=== PATIENT | female | born 1985 | race African-American/Black ===

== ENCOUNTER 2016-11-20 08:03 | Emergency (ER) | payer MEDICAID ==
[~2016-11-20] VITALS: Ht 165.1 cm; Wt 57.0 kg
[2016-11-20 09:29] LABS: EOSINOPHILS % 4.5 % (0.0-5.0); HEMATOCRIT. 34.4 % (36.0-48.0); HEMOGLOBIN. 11.3 g/dL (12.0-16.0); LYMPHOCYTES % 38.7 % (20.0-50.0); MEAN CORPUSCULAR HEMOGLOBIN 26.7 pg (28.0-32.0); MEAN CORPUSCULAR VOLUME 81.3 fL (81.0-99.0); MEAN PLATELET VOLUME 7.1 fl (7.4-10.4); MONOCYTES % 5.3 % (2.0-8.0); NEUTROPHILS % 50.5 % (40.0-76.0); PLATELET 262 x1000/uL (130-400); RED BLOOD CELL COUNT 4.23 mill/uL (4.2-5.4); RED CELL DISTRIBUTION WIDTH 13.8 % (11.6-14.6)
[2016-11-20 09:38] LABS: CARBON DIOXIDE 27 mEq/L (21-32); CHLORIDE 105 mEq/L (98-107)
[2016-11-20 09:45] LABS: B-HCG QUANTITATIVE 348 mIU/mL (<3)
[2016-11-20] MEDS ORDERED: ACETAMINOPHEN 500MG TABLET PO ONE (09:45)
[2016-11-20 10:37] LABS: CLARITY URINE CLEAR (CLEAR); COLOR URINE YELLOW (YELLOW); GLUCOSE URINE NEGATIVE (NEGATIVE); KETONES URINE NEGATIVE (NEGATIVE); LEUKOCYTE ESTERASE URINE NEGATIVE (NEGATIVE); NITRITE URINE NEGATIVE (NEGATIVE); OCCULT BLOOD URINE 2+ (NEGATIVE); PH URINE 5.5 (4.5-8.0); PROTEIN URINE NEGATIVE (NEGATIVE); SPECIFIC GRAVITY URINE 1.021 (1.005-1.030); UROBILINOGEN URINE 0.2 E.U./dL (0.2-1.0)
[2016-11-20 11:15] VITALS: BP 101/65
== END 2016-11-20 11:58 | disposition home or self-care (01) ==
LOC: ER 09:35
DX: O20.0 Threatened abortion (principal); O34.10 Maternal care for benign tumor of corpus uteri, unspecified trimester; D25.9 Leiomyoma of uterus, unspecified; Z3A.00 Weeks of gestation of pregnancy not specified
CPT/HCPCS: 36415; 76801; 76817; 80048; 81001; 84702; 85025; 86850; 86900; 86901; 99285; Z7610

== ENCOUNTER 2019-01-08 10:12 | Emergency (ER) | payer MEDICAID, OTHER ==
[~2019-01-08] VITALS: Ht 160 cm; Wt 56.0 kg
[2019-01-08] MEDS ORDERED: IBUPROFEN 600MG TABLET PO ONE (11:45)
[2019-01-08 11:50] VITALS: BP 134/85
== END 2019-01-08 11:50 | disposition home or self-care (01) ==
LOC: ER 10:12
DX: M62.830 Muscle spasm of back (principal); M54.5 Low back pain; M31.1 Thrombotic microangiopathy; M54.6 Pain in thoracic spine; J45.909 Unspecified asthma, uncomplicated; V89.2XXA Person injured in unspecified motor-vehicle accident, traffic, initial encounter; Y93.89 Activity, other specified; Y92.89 Other specified places as the place of occurrence of the external cause; Y99.8 Other external cause status
CPT/HCPCS: 99283

== ENCOUNTER 2021-05-26 11:11 | Emergency (ER) | payer MEDICAID ==
[~2021-05-26] VITALS: Ht 175.3 cm; Wt 68.3 kg
[2021-05-26 11:20] VITALS: BP 91/67
== END 2021-05-26 12:03 | disposition home or self-care (01) ==
LOC: ER 11:33
DX: M62.838 Other muscle spasm (principal); M54.9 Dorsalgia, unspecified; J45.909 Unspecified asthma, uncomplicated; V43.52XA Car driver injured in collision with other type car in traffic accident, initial encounter; Y93.89 Activity, other specified; Y92.410 Unspecified street and highway as the place of occurrence of the external cause
CPT/HCPCS: 99281